=== PATIENT | female | born 1965 | race Native Hawaiian/Other Pacific Islander ===

== ENCOUNTER 2016-06-04 08:49 | Outpatient (CLI) | payer BC ==
--- NOTE | 2016-06-04 12:59 | Mammography Report ---
BILATERAL DIGITAL SCREENING MAMMOGRAM with CAD : 06/04/16 08:49:00 CLINICAL: Routine screening. COMPARISON:09/13/14 FINDINGS: The breasts are heterogeneously dense, which may obscure small masses.A right asymmetry on the CC view is unchanged compared to the previous exam. No mass, architectural distortion or suspicious calcifications. IMPRESSION: No mammographic evidence of malignancy. BI-RADS CATEGORY: 2 -- Benign RECOMMENDATION: Routine mammographic screening in one year. COMMENT: Patient follow-up letters are generated by our [employer] application.
== END 2016-06-04 08:50 | disposition home or self-care (01) ==
LOC: SPVWC 08:49
PROVIDERS: ATTEND Family Medicine Adult Medicine
DX: Z12.31 Encounter for screening mammogram for malignant neoplasm of breast (principal)
CPT/HCPCS: 77067; G0202

== ENCOUNTER 2017-06-07 09:45 | Outpatient (CLI) | payer BC ==
--- NOTE | 2017-06-10 08:35 | Mammography Report ---
BILATERAL DIGITAL SCREENING MAMMOGRAM with CAD: 06/07/17 09:45:00 CLINICAL: Routine screening. COMPARISON:06/04/16 and 09/13/14 FINDINGS: The breasts are heterogeneously dense, which may obscure small masses. A right asymmetry requires additional imaging.No architectural distortion or suspicious calcifications.The left breast is negative. IMPRESSION: Right asymmetry requiring further workup. BI-RADS CATEGORY: 0 -- Additional Imaging Evaluation Required RECOMMENDATION: Recall for right lateralmedial , spot magnification CC and MLO views and right breast ultrasound. ACR BI-RADS MAMMOGRAPHIC CODES: 0 = Needs additional imaging evaluation; 1 = Negative; 2 = Benign; 3 = Probably benign; 4 = Suspicious; 5 = Malignant; 6 = Known biopsy-proven malignancy COMMENT: 1. Dense breast tissue, i.e., adenosis, fibrocystic changes, etc., may obscure an underlying neoplasm. 2. Approximately 10% of cancers are not detected with mammography. 3. A negative mammography report should not delay biopsy if a clinically suspicious mass is present. COMMENT: Patient follow-up letters are generated via our [employer] application.
== END 2017-06-07 09:46 | disposition home or self-care (01) ==
LOC: SPVWC 09:45
PROVIDERS: ATTEND Family Medicine Adult Medicine
DX: Z12.31 Encounter for screening mammogram for malignant neoplasm of breast (principal)
CPT/HCPCS: 77067

== ENCOUNTER 2017-06-27 10:04 | Outpatient (CLI) | payer BC ==
--- NOTE | 2017-06-27 11:24 | Mammography Report ---
RIGHT DIGITAL DIAGNOSTIC MAMMOGRAM and RIGHT BREAST ULTRASOUND: 06/27/17 10:04:00 CLINICAL: Recalled for asymmetry. COMPARISON:06/07/17 screening FINDINGS: Lateralmedial and spot magnification MLO and CC views were performed. Partial effacement of asymmetry on the spot images and a persistent asymmetry on the lateral view. Ultrasound of the upper right breast was performed and demonstrated a benign oval cyst at 1 o'clock 6 cm from the nipple. It measures 8 x 9 x 4 mm and correlates with the mammographic asymmetry. No solid mass or shadowing. IMPRESSION: A benign 9 mm cyst at 1 o'clock right breast. No suspicious finding. BI-RADS CATEGORY: 2 - - Benign RECOMMENDATION: Routine mammographic screening in one year. ACR BI-RADS MAMMOGRAPHIC CODES: 0 = Needs additional imaging evaluation; 1 = Negative; 2 = Benign; 3 = Probably benign; 4 = Suspicious; 5 = Malignant; 6 = Known biopsy-proven malignancy COMMENT: 1. Dense breast tissue, i.e., adenosis, fibrocystic changes, etc., may obscure an underlying neoplasm. 2. Approximately 10% of cancers are not detected with mammography. 3. A negative mammography report should not delay biopsy if a clinically suspicious mass is present. COMMENT: Patient follow-up letters are generated via our [email or web address] application.
--- NOTE | 2017-06-27 11:29 | Ultrasound Report ---
RIGHT DIGITAL DIAGNOSTIC MAMMOGRAM and RIGHT BREAST ULTRASOUND: 06/27/17 10:04:00 CLINICAL: Recalled for asymmetry. COMPARISON:06/07/17 screening FINDINGS: Lateralmedial and spot magnification MLO and CC views were performed. Partial effacement of asymmetry on the spot images and a persistent asymmetry on the lateral view. Ultrasound of the upper right breast was performed and demonstrated a benign oval cyst at 1 o'clock 6 cm from the nipple. It measures 8 x 9 x 4 mm and correlates with the mammographic asymmetry. No solid mass or shadowing. IMPRESSION: A benign 9 mm cyst at 1 o'clock right breast. No suspicious finding. BI-RADS CATEGORY: 2 - - Benign RECOMMENDATION: Routine mammographic screening in one year.
== END 2017-06-27 10:05 | disposition home or self-care (01) ==
LOC: SPVWC 10:04
PROVIDERS: ATTEND Family Medicine Adult Medicine
DX: N60.01 Solitary cyst of right breast (principal); R92.2 Inconclusive mammogram

== ENCOUNTER 2018-07-29 10:29 | Outpatient (CLI) | payer OTHER ==
--- NOTE | 2018-07-30 16:06 | Mammography Report ---
BILATERAL DIGITAL SCREENING MAMMOGRAM with CAD: 07/29/18 10:29:00 CLINICAL: Routine screening. COMPARISON:06/27/17, 06/07/17 and 06/04/16 FINDINGS: The breasts are heterogeneously dense, which may obscure small masses. No mass, architectural distortion or suspicious calcifications. IMPRESSION: No mammographic evidence of malignancy. BI-RADS CATEGORY: 1 - - Negative RECOMMENDATION: Routine mammographic screening in one year. COMMENT: Patient follow-up letters are generated by our [employer] application.
== END 2018-07-29 10:30 | disposition home or self-care (01) ==
LOC: SPVWC 10:29
PROVIDERS: ATTEND Family Medicine Adult Medicine
DX: Z12.31 Encounter for screening mammogram for malignant neoplasm of breast (principal)
CPT/HCPCS: 77067